=== PATIENT | male | born 1945 | race Caucasian/White ===

== ENCOUNTER 2016-12-08 07:50 | Day surgery (SDC) | payer MEDICARE, OTHER ==
[~2016-12-08] VITALS: Ht 175.3 cm; Wt 92.4 kg
[~2016-12-08 07:50] MED LIST: ADV250INH IH; ALBU8.5H2 INHALATION; AMLO5TAB2 PO; ASPI-973 PO; AZEL23SP NS; CHOL10008 PO; CeFAZolin 2 Gm/50 mL D5W IV Premix IV ONE; FINA5TAB2 PO; FLUT16SP NS; IBUP400T22 PO; KEN25CR EXT; KETO10DR4 OP; Lactated Ringer's 1,000 ML IV SCH; MELO7.5T13 PO; NITR0.4T SL; OMEG-38 PO; SALM50DI IH; TAMS0.4C98 PO; VIT1TABL83 PO; metamucil
[2016-12-08] MEDS ORDERED: CeFAZolin Inj 2 gm / 50mL D5W IV ONE (08:19)
[2016-12-08 08:57] VITALS: BP 141/85; PULSE 84; RESP 18; O2SAT 98
[2016-12-08] MEDS ORDERED: Lactated Ringer's 1,000 ML IV ONE (09:05)
--- NOTE | 2016-12-08 09:31 | DRSVH ---
PROCEDURE: X-RAY KUB ([id number]) INDICATIONS: LEFT URETERAL STONE TECHNIQUE: One view of the abdomen acquired. COMPARISON: [facility], CT, ABDOMEN/PELVIS WITH CONTRAST, 08/11/2016, 11:24. [facility], C R, CHEST 2 VIEW, 12/18/2013, 11:16. [facility], CR, XR ABD AP 1VW, 11/16/2016, 10:26. FINDINGS: Surgical changes and devices: None. Bowel: Bowel gas pattern is normal. Soft tissues: 1.3 cm calcification projected over the left flank in the region of the left renal pelv is/proximal left ureter not significantly changed.. Bones: No suspicious bony lesions. IMPRESSION: 1. Calcification again seen projected over the left flank with no significant change from prior exami nation. 2. Scarring within the lung bases redemonstrated. Dictated by: Percy Scanlon [facility] Interpreted: Henry Hurtado MD on 12/08/2016 at 9:30 Transcribed by: VJ on 12/08/2016 at 9:31 Approved by: Henry Hurtado M.D. on 12/08/2016 at 10:00
--- NOTE | 2016-12-08 09:36 | PCM.HPANE ---
Patient Data Date of Service: December 08, 2016 Surgeon Admitting Provider: Attending Provider:Chris Lauren MD Primary Care Physician:Clovis Ferrer MD Other Provider:Harmeet Partida Anesthesia Reason for Visit Left Ureteral Stone Ht/WT & BMI Height (Feet): 5 Height (Inches): 9.00 Weight (Kilograms): 92.4 Body Mass Index 30.00 Allergies Uncoded Allergies: ENVIRONMENTAL (Allergy, Unknown, 12/06/16) Past Anesthesia History Anesthesia History: Denies:: Abnormal Airway, Anesthesia Reactions, Difficult Intubation, Fam Anesthesia Reaction Diabetes History Hx Diabetes?: No MRSA MRSA: No Medications Blood Thinner: Aspirin Hypertension Medication: Yes Home Meds Incl Beta Vika: No Reported Medications Cholecalciferol (Vitamin D3) (Vitamin D3)1,000 Unit Tab.chew1,000 Unit PO DAILY 12/06/16 Vit B Comp/C/FA/Iron/Vit E (Vitamin B Complex Tablet)1 Each Tablet1 Each PO DAILY 12/06/16 Triamcinolone Acet (Triamcinolone Acetonide Cream)1 Applic/0.25 Gm Cr1 Applic EXT BID #60 GM Ref 0 12/06/16 Tamsulosin (Flomax)0.4 Mg Capsule0.4 Mg PO DAILY Ref 0 12/06/16 Salmeterol Xinafoate (Serevent Diskus)50 Mcg/Puff Inhaler1,400 Mcg IH BID 12/06/16 Finasteride (Proscar)5 Mg Tablet5 Mg PO DAILY 30 Days 12/06/16 Albuterol HFA (Proair HFA)8.5 Gm Hfa.aer.ad2 Puffs INHALATION Q4H PRN For Shortness of Breath #1 INHALER 12/06/16 Nitroglycerin SL (Nitrostat)0.4 Mg Tab.subl0.4 Mg SL Q5MIN PRN For Chest Pain # 1 BOTTLE 12/06/16 Meloxicam (Mobic)7.5 Mg Tablet7.5 Mg PO DAILY 30 Days Ref 0 12/06/16 [metamucil] No Conflict CheckUnknown Dose PRN For Constipation 12/06/16 Ibuprofen 400 Mg [id number] Mg PO QID PRN For Pain Ref 0 12/06/16 Fluticasone Propionate (Fluticasone Propionate Nasal)16 Gm [place].susp1 [place] NS BID #16 GM Ref 0 12/06/16 [place]-3/Dha/Epa/Fish Oil (Fish Oil 1,000 mg Softgel)1 Each Capsule1 Each PO DAILY 12/06/16 Azelastine/Fluticasone (Dymista Nasal [place])23 Gm [place].pump2 Sprays NS BID 12/06/16 Aspirin 81 Mg [id number] Mg PO DAILY Ref 0 12/06/16 Amlodipine 5 Mg Tablet5 Mg PO DAILY Ref 0 12/06/16 Ketotifen Fumarate (Alaway)10 Ml Drops10 Ml OP BID 12/06/16 Fluticasone/Salmeterol (Advair 250-50 Diskus)60 Puff/Inh Disk1 Puff IH BID #1 DISK Ref 0 12/06/16 History HEENT History: Positive for:: Cataracts (right eye) Denies:: Abnormal Airway Difficult Intubation Dysphagia Glaucoma Hearing Problem Sinus Problem TMJ Hx of Heart Problems?: Yes Cardiovascular History: Positive for:: Hypertension Denies:: AICD Abdominal Aortic Aneurism Atrial Fibrillation Chest Pain Edema Heart Murmur Irregular Heartbeat Pacemaker Peripheral Vascular Hx of Respiratory Problem?: Yes Respiratory History: Positive for:: Asthma Use of Inhalers / NEBS Denies:: COPD Emphysema Oxygen Administration Pneumonia Tuberculosis Use of C-PAP Machine Hx Neurologic Problems?: No Neurological History: Denies:: CVA Headaches Multiple Sclerosis Parkinson's Disease Seizures TIA Hx of GI Problems?: No Other GI Pertinent History: hx of colon cancer- removed 80% Hx of Problems?: Yes Male Hx: Positive for:: Prostate Problems (BPH, elevated PSA) Skin History: Denies:: History Skin Disorders? Pressure Ulcers Hx Musculoskeletal Problems?: Yes Musculoskeletal History: Positive for:: Osteoarthritis Denies:: Back Injury Fibromyalgia Joint Replacement Musculoskeletal Trauma Myasthenia Gravis Systemic Lupus Hx of Psycho/Social Problems?: No Psycho Social History: Denies:: Anxiety Hx Depression Hx Surgeries?: Yes (colon resection, cataract) Hx Any Other Health Problems?: Yes Other History: Positive for:: Cancer (colon) Denies:: Thyroid Disease History Blood Transfusions: Positive for:: Accept Blood Products? Denies:: Blood Transfusions Hx Diabetes: No Hx Alcohol Use: YesAlcoholic Drinks Per Day: socially one drink or two monthly Hx Substance Use: NoHave You Smoked inLast 12 mo: No Stop/Bang S-Snoring: Do You Snore Loudly: No T-Tired: feel tired, fatigued: Yes O-Obsered: Observed not breath: No P-Blood Pressure: treated: No B- Body Mass Index > 35 kg/m2: No A- Age over 50: Yes N- Neck Large Circumference: No G- Gender Male: Yes NICHOLE Total Score: 3 NICHOLE Risk Assessment: High Risk, =/>3 Yes NICHOLE Category 4 OutPt Procedure: Yes Risk Assessment Category Category 1A: Patient has history of documented sleep apnea, and HAS NOT received any narcotic, sedative or anesthesia administration during this stay. Category 1B: Patient has history of documented sleep apnea, and HAS received any narcotic , sedative or anesthesia administration during this stay Category 2: Patient has SUSPECTED Obstructive Sleep Apnea, and HAS received any narcotic , sedative or anesthesia administration during this stay. Category 3: Patient has SUSPECTED Obstructive Sleep Apnea and HAS NOT received narcotic, sedative or anesthesia administration during this stay. Category 4: Outpatient in Procedural Areas with known sleep apnea or who screen positive for High Risk via the STOP/BANG questionnaire. Exam Exam Vital Signs Vital Signs Date Time Temp Pulse Resp B/P Pulse Ox O2 Delivery O2 Flow Rate FiO2 12/08/16 08:57 36.4 84 18 141/85 98 General Appearance: Alert, Oriented X3, Cooperative, No Acute Distress HEENT/AIRWAY: MP 2 Lungs: Clear to Auscultation, Normal Air Movement Heart: Exam Unremarkable, Regular Rate/Rhythm, No Murmurs/Rubs/Gallops Meds/Labs/Diagnostics Admission Meds Current Medications Lactated Ringer's (Lr) 1,000 ml @ ud STK-MED ONCE IV Last administered on t 09:05; Start 12/08/16 at 09:05; Stop 12/08/16 at 09:06; Status DC Plan Impression Patient chart reviewed, patient interviewed and anesthestic plan with risks, benefits, and alternatives discussed, and informed consent obtained. NPO per Anesth. Guidelines: Yes ASA Physical Status: ASA2 Mod Systemic Disease Anesthetic Plan: GA Bene/Risks/Altern/Consents: Yes HP Complete Prior to Induction: Yes Jrodan Greenberg MD December 08, 2016 09:36
--- NOTE | 2016-12-08 10:27 | PCM.PNSURG ---
Subjective Date of Service: December 08, 2016 Date of Service: December 08, 2016 Assessment & Plan Impression Patient presented for ESWL today. However, patient has been taking Mobic/ Meloxicam QD, with last dose yesterday. ESWL canceled for today, secondary to significantly increased risk of bleeding and perinephric/renal hematoma if ESWL were to be performed with patient on Mobic. ESWL will be re-scheduled. Patient was instructed to avoid all blood-thinning medications (including Mobic ) for 7-10 days before and after ESWL. Patient states understanding. Problems: Chris Lauren MD December 08, 2016 10:27
== END 2016-12-08 23:59 | disposition home or self-care (01) ==
LOC: SAS 07:50
PROVIDERS: ATTEND Urology
DX: N20.1 Calculus of ureter (principal); Z53.8 Procedure and treatment not carried out for other reasons; Z79.1 Long term (current) use of non-steroidal anti-inflammatories (NSAID)
CPT/HCPCS: 74000; J7120

== ENCOUNTER 2016-12-22 06:22 | Day surgery (SDC) | payer MEDICARE, OTHER ==
[2016-12-22] VITALS (10 sets, daily range): BP systolic 140–155; BP diastolic 74–90; PULSE 70–93; RESP 11–23; O2SAT 94–99
[~2016-12-22] VITALS: Ht 171.4 cm; Wt 92.4 kg
[~2016-12-22 06:22] MED LIST changes: -CeFAZolin 2 Gm/50 mL D5W IV Premix IV ONE; +CeFAZolin Inj 2 GM in IV Premix 1 EACH IV ONE
[2016-12-22] MEDS ORDERED: fentaNYL-PF 50 mCg/mL 2 mL Inj ONE (06:23)
[2016-12-22] MEDS ORDERED: Propofol 10,000 mCg/mL 20 mL Inj ONE (06:23)
[2016-12-22] MEDS ORDERED: Ondansetron 2 mg/mL 2 mL Inj ONE (06:23)
--- NOTE | 2016-12-22 07:00 | PCM.HPANE ---
Patient Data Surgeon Admitting Provider: Attending Provider:Megan May MD Primary Care Physician:Clovis Ferrer MD Other Provider:Purnima Partiadingham Anesthesia Reason for Visit Left Ureteral Stone Ht/WT & BMI Height (Feet): 5 Height (Inches): 7.5 Weight (Kilograms): 92.4 Body Mass Index 31.00 Allergies Uncoded Allergies: ENVIRONMENTAL (Allergy, Unknown, 12/06/16) Past Anesthesia History Anesthesia History: Denies:: Abnormal Airway, Anesthesia Reactions, Difficult Intubation, Fam Anesthesia Reaction, Fam Malignant Hypertherm, Malignant Hyperthermia Diabetes History Hx Diabetes?: No MRSA MRSA: No Medications Blood Thinner: Aspirin Reported Medications Cholecalciferol (Vitamin D3) (Vitamin D3)1,000 Unit Tab.chew1,000 Unit PO DAILY 12/06/16 Vit B Comp/C/FA/Iron/Vit E (Vitamin B Complex Tablet)1 Each Tablet1 Each PO DAILY 12/06/16 Triamcinolone Acet (Triamcinolone Acetonide Cream)1 Applic/0.25 Gm Cr1 Applic EXT BID #60 GM Ref 0 12/06/16 Tamsulosin (Flomax)0.4 Mg Capsule0.4 Mg PO DAILY Ref 0 12/06/16 Salmeterol Xinafoate (Serevent Diskus)50 Mcg/Puff Inhaler1,400 Mcg IH BID 12/06/16 Finasteride (Proscar)5 Mg Tablet5 Mg PO DAILY 30 Days 12/06/16 Albuterol HFA (Proair HFA)8.5 Gm Hfa.aer.ad2 Puffs INHALATION Q4H PRN For Shortness of Breath #1 INHALER 12/06/16 Nitroglycerin SL (Nitrostat)0.4 Mg Tab.subl0.4 Mg SL Q5MIN PRN For Chest Pain # 1 BOTTLE 12/06/16 Meloxicam (Mobic)7.5 Mg Tablet7.5 Mg PO DAILY 30 Days Ref 0 12/06/16 [metamucil] No Conflict CheckUnknown Dose PRN For Constipation 12/06/16 Ibuprofen 400 Mg [id number] Mg PO QID PRN For Pain Ref 0 12/06/16 Fluticasone Propionate (Fluticasone Propionate Nasal)16 Gm [place].susp1 [place] NS BID #16 GM Ref 0 12/06/16 [place]-3/Dha/Epa/Fish Oil (Fish Oil 1,000 mg Softgel)1 Each Capsule1 Each PO DAILY 12/06/16 Azelastine/Fluticasone (Dymista Nasal [place])23 Gm [place].pump2 Sprays NS BID 12/06/16 Aspirin 81 Mg [id number] Mg PO DAILY Ref 0 12/06/16 Amlodipine 5 Mg Tablet5 Mg PO DAILY Ref 0 12/06/16 Ketotifen Fumarate ([place])10 Ml Drops10 Ml OP BID 12/06/16 Fluticasone/Salmeterol (Advair 250-50 Diskus)60 Puff/Inh Disk1 Puff IH BID #1 DISK Ref 0 12/06/16 History History of ENT Problems?: Yes HEENT History: Positive for:: Cataracts (right eye) Denies:: Abnormal Airway Difficult Intubation Dysphagia Hearing Problem Sinus Problem TMJ Denture Type: None Teeth Condition: Within Normal Limits Hx of Heart Problems?: Yes Cardiovascular History: Positive for:: Hypertension Denies:: AICD Abdominal Aortic Aneurism Atrial Fibrillation Chest Pain Edema Heart Murmur Irregular Heartbeat Pacemaker Hx of Respiratory Problem?: Yes Respiratory History: Positive for:: Asthma Denies:: COPD Emphysema Oxygen Administration Pneumonia Tuberculosis Use of C-PAP Machine Hx Neurologic Problems?: No Neurological History: Denies:: CVA Headaches Multiple Sclerosis Parkinson's Disease Seizures Hx of GI Problems?: No Hx of Problems?: Yes Genitourinary History: Denies:: Urinary Tract Infection Male Hx: Positive for:: Prostate Problems (BPH, elevated PSA) Skin History: Denies:: History Skin Disorders? Pressure Ulcers Hx Musculoskeletal Problems?: Yes Musculoskeletal History: Denies:: Back Injury Joint Replacement Musculoskeletal Trauma Systemic Lupus Hx of Psycho/Social Problems?: No Psycho Social History: Denies:: Anxiety Hx Depression Hx Surgeries?: Yes (colon resection, cataract) Hx Any Other Health Problems?: Yes Other History: Positive for:: Cancer (colon) Denies:: Thyroid Disease History Blood Transfusions: Denies:: Blood Transfusions Hx Diabetes: No Hx Alcohol Use: YesHx Substance Use: No Smoking Status: Never Smoker Have You Smoked inLast 12 mo: No Stop/Bang P-Blood Pressure: treated: Yes B- Body Mass Index > 35 kg/m2: No A- Age over 50: Yes N- Neck Large Circumference: No G- Gender Male: Yes Risk Assessment Category Category 1A: Patient has history of documented sleep apnea, and HAS NOT received any narcotic, sedative or anesthesia administration during this stay. Category 1B: Patient has history of documented sleep apnea, and HAS received any narcotic , sedative or anesthesia administration during this stay Category 2: Patient has SUSPECTED Obstructive Sleep Apnea, and HAS received any narcotic , sedative or anesthesia administration during this stay. Category 3: Patient has SUSPECTED Obstructive Sleep Apnea and HAS NOT received narcotic, sedative or anesthesia administration during this stay. Category 4: Outpatient in Procedural Areas with known sleep apnea or who screen positive for High Risk via the STOP/BANG questionnaire. Exam Exam General Appearance: Alert, Oriented X3, Cooperative HEENT/AIRWAY: MP 2, Neck Movement (from ), Mouth Opening (WNL) Lungs: Clear to Auscultation Heart: Exam Unremarkable Plan Impression Patient chart reviewed, patient interviewed and anesthestic plan with risks, benefits, and alternatives discussed, and informed consent obtained. NPO per Anesth. Guidelines: Yes ASA Physical Status: ASA2 Mod Systemic Disease Anesthetic Plan: GA Bene/Risks/Altern/Consents: Yes HP Complete Prior to Induction: Yes Timo Jack MD December 22, 2016 06:59
[2016-12-22] MEDS ORDERED: Lactated Ringer's 1,000 ML IV ONE (07:09)
[2016-12-22] MEDS ORDERED: Lactated Ringer's 500 ML IV PRN (08:24)
[2016-12-22] MEDS ORDERED: Lactated Ringer's 1,000 ML IV SCH (08:24)
[2016-12-22] MEDS ORDERED: Labetalol 5 mg/mL 4 mL Inj IV PRN (08:25)
[2016-12-22] MEDS ORDERED: Ondansetron 2 mg/mL 2 mL Inj IVPUSH PRN (08:25)
[2016-12-22] MEDS ORDERED: HYDROmorphone 1 mg/mL Inj IVPUSH PRN (08:25)
[2016-12-22] MEDS ORDERED: fentaNYL-PF 50 mCg/mL 2 mL Inj IVPUSH PRN (08:25)
[2016-12-22] MEDS ORDERED: Atropine 0.4 mg/mL Inj IVPUSH PRN (08:25)
[2016-12-22] MEDS ORDERED: EPHEDrine Sulfate 50 mg/mL Inj IVPUSH PRN (08:25)
[2016-12-22] MEDS ORDERED: hydrALAZINE 20 mg/mL Inj IVPUSH PRN (08:25)
[2016-12-22] MEDS ORDERED: Dexamethasone 4 mg/mL Inj IVPUSH PRN (08:25)
[2016-12-22] MEDS ORDERED: Phenylephrine 10,000 mCg/mL Inj IVPUSH PRN (08:25)
--- NOTE | 2016-12-22 09:00 | DRSVH ---
PROCEDURE: X-RAY KUB ([id number]) INDICATIONS: LEFT URETERAL STONE TECHNIQUE: One view of the abdomen acquired. COMPARISON: [facility], CR, XR KUB, 12/08/2016, 8:06. FINDINGS: Surgical changes and devices: None. Bowel: Bowel gas pattern is normal. Soft tissues: 1.1 cm calcification again seen projected over the left flank in the region of the left renal pelvis similar to prior examination. Bones: No suspicious bony lesions. IMPRESSION: Left flank calcification in the region of the left renal pelvis/proximal ureter not signi ficantly changed from prior exam. Dictated by: Percy Scanlon RRA Interpreted: Elizabeth Chun MD on 12/22/2016 at 8:59 Transcribed by: MILENA on 12/22/2016 at 9:00 Approved by: Elizabeth Chun M.D. on 12/23/2016 at 9:07
[2016-12-22] MEDS ORDERED: HYDROcodone-APAP 5-325 mg Tablet PO PRN (10:00)
[2016-12-22] MEDS ORDERED: Ondansetron 8 mg ODT Tablet PO PRN (10:00)
--- NOTE | 2016-12-22 11:46 | PCM.ANEP1 ---
Post Anesthesia PACU Phase 1 Assessment Vital Signs Vital Signs Date Time Temp Pulse Resp B/P Pulse Ox O2 Delivery O2 Flow Rate FiO2 12/22/16 10:40 87 16 141/90 96 Room Air 12/22/16 10:30 73 17 145/79 95 Room Air 12/22/16 10:25 74 11 140/74 94 Room Air 12/22/16 10:20 70 13 152/80 95 Room Air 12/22/16 10:15 75 14 155/75 94 Room Air 12/22/16 10:10 79 23 150/79 96 Room Air 12/22/16 10:05 80 15 147/81 99 Simple Mask 8 12/22/16 10:00 80 14 143/81 99 Simple Mask 8 12/22/16 09:55 36.5 88 15 145/86 99 Simple Mask 8 12/22/16 07:10 36.3 93 18 149/80 96 Room Air Anesthetic Administered: GA Level of Alertness: Awake, talking SAUNDERS's with Equal Strength: Yes Pain: No Nausea or Vomiting: No CV Function and Hydration: Yes Airway Device: NONE Lungs: Normal Air Movement PACU Phase 2 Assessment Complications: No Follow up Care: No Patient Instructions Provided: N/A Timo Jack MD December 22, 2016 11:45
--- NOTE | 2016-12-24 06:20 | OP ---
[address] [address] OPERATIVE REPORT PATIENT: JAREN MENJIVAR : 1945 MR#: [id number] ADMIT: 12/22/2016 JOB ID: [id number] DATE OF SURGERY: 12/22/2016 PROCEDURE: Left-sided extracorporeal shock wave lithotripsy and left-sided double-J stent placement. SURGEON: Megan May MD ANESTHESIA: General. PREOPERATIVE DIAGNOSIS(ES): Large ureteropelvic junction stone with renal colic. POSTOPERATIVE DIAGNOSIS(ES): Large ureteropelvic junction stone with renal colic. INDICATIONS: The patient is a 71-year-old gentleman with history of nephrolithiasis with a large impacted ureteropelvic junction stone and proximal ureteral stone, approximately 1.23 x almost 1 cm in size. Counseled about treatment options. Electing stent placement and shockwave lithotripsy. PROCEDURE IN DETAIL: After appropriate informed consent was obtained, the patient was brought to the operating room and received IV antibiotics prior to onset of procedure. SCDs were placed. Adequate general anesthesia induced. She was carefully placed in dorsal position. All pressure points were carefully padded. Cleaned, prepped, and draped in the usual sterile fashion. Rigid scope was introduced in the patient's bladder. The left ureteral orifice which was grossly normal in appearance. The left ureteral orifice was identified and cannulated with an open-ended catheter and a hydrophilic tipped guidewire which we were able to navigate past the stone at ureteropelvic junction. Initial attempts to slide a 6-[place] x 24 cm double-J stent over this wire were unsuccessful due to the impacted nature the stone. We thus used an open-ended catheter once again and then changed over to an Amplatz superstiff wire. This was then backloaded through the scope so we could advance the 6-[place] x 24 cm double-J stent over the wire. This actually succeeded in pushing the stone back up and over into the right lower pole mass, leaving a stent in good position with a curl in renal pelvis and a curl in patient's bladder. The scope was then withdrawn. The patient's bladder was drained, and he was repositioned and the shock wave head was applied to his flank. We began to treat the stone which was readily visible on fluoroscopy. He was treated with escalating power to power level of 5 initially with a rate of 60. The stone showed to be breaking up very, very nicely, so ultimately the rate was increased to 90. After total of 2000 shocks with a 2 minute pause after 200 shocks, the stone was barely visible on fluoroscopy indicating very good break up. The procedure was terminated after 2000 shocks. The flank was in good condition. No erythema. The patient tolerated the procedure very well, was awakened, and taken in stable condition to the postanesthesia care unit.
== END 2016-12-22 23:59 | disposition home or self-care (01) ==
LOC: SAS 06:22
PROVIDERS: ATTEND Urology
DX: N20.1 Calculus of ureter (principal); N23 Unspecified renal colic; Z87.442 Personal history of urinary calculi; Z85.51 Personal history of malignant neoplasm of bladder; I10 Essential (primary) hypertension
CPT/HCPCS: 50590; 52332; 74000; C2617; J0690; J2250; J2405; J3010; J7120